=== PATIENT | female | born 1965 | race Hispanic/Latino ===

== ENCOUNTER 2017-10-09 15:16 | Inpatient (IN) | payer OTHER ==
[2017-10-09] VITALS (20 sets, daily range): BP systolic 136–172; BP diastolic 70–96
[~2017-10-09] VITALS: Ht 170.2 cm; Wt 90.5 kg
[2017-10-09] MEDS ORDERED: SODIUM CHLORIDE 0.9% 1000ML 1,000 ML IV STA (15:28)
[2017-10-09] MEDS ORDERED: ASPIRIN 81 MG CHEW TAB PO ONE (15:30)
[2017-10-09] MEDS ORDERED: ONDANSETRON HCL 4 MG ORAL DISINTEGRATING TAB PO ONE (15:30)
[2017-10-09 15:58] LABS: BASOPHILS # (AUTO) 0.1 (0.0-0.1); BASOPHILS % 0.6 % (0.0-1.0); EOSINOPHILS # (AUTO) 0.4 (0.0-0.4); EOSINOPHILS % 3.6 % (0.0-6.0); HEMATOCRIT 33.1 % (34.2-44.1); LYMPHOCYTES # (AUTO) 3.3 (1.0-3.2); LYMPHOCYTES % 27.9 % (18.0-39.1); MEAN CORPUSCULAR HEMOGLOBIN 31.3 pg (28-32); MEAN CORPUSCULAR HGB CONC 36.3 g/dL (31-35); MEAN CORPUSCULAR VOLUME 86.2 fL (81-99); MONOCYTES # (AUTO) 0.9 (0.2-0.8); MONOCYTES % 7.9 % (4.4-11.3); NEUTROPHILS % 59.4 % (38.7-80.0); PLATELET COUNT 299 x10e3/uL (140-360); RED BLOOD COUNT 3.84 x10e6/uL (3.6-5.1); RED CELL DISTRIBUTION WIDTH 12.8 % (11.7-14.4)
[2017-10-09 16:02] LABS: INR 1.04; PROTHROMBIN TIME 12.8 seconds (11.9-14.5)
[2017-10-09 16:03] LABS: PARTIAL THROMBOPLASTIN TIME 22.5 seconds (23.8-35.5)
[2017-10-09 16:06] LABS: BILIRUBIN,URINE 1+ (NEGATIVE); CLARITY,URINE SL CLOUDY (CLEAR); COLOR,URINE YELLOW (YELLOW); KETONES,URINE 1+ (NEGATIVE); LEUKOCYTE ESTERASE ,URINE NEGATIVE (NEGATIVE); NITRITE,URINE NEGATIVE (NEGATIVE); PROTEIN,URINE DIPSTICK 1+ (NEGATIVE); URINE UROBILINOGEN 0.2 mg/dL (0.2 - 1)
[2017-10-09 16:14] LABS: ALANINE AMINOTRANSFERASE 23 IU/L (0-55); ALBUMIN 3.9 g/dL (3.5-5.0); ALBUMIN/GLOBULIN RATIO 1.2 (0.8-2.0); ALKALINE PHOSPHATASE 88 IU/L (40-150); ANION GAP 16.3 mmol/L (8-16); BLOOD UREA NITROGEN 29 mg/dL (7-26); BUN/CREATININE RATIO 18 (6-25); CALCIUM 9.7 mg/dL (8.4-10.2); CARBON DIOXIDE 22 mmol/L (22-29); CHLORIDE 102 mmol/L (98-107); CREATININE, SERUM 1.58 mg/dL (0.57-1.11); EST GLOMERULAR FILTRATION RATE 34 ML/MIN (60-); GLUCOSE 327 mg/dL (74-118); LIPASE 26 U/L (8-78); POTASSIUM 4.3 mmol/L (3.5-5.1); SODIUM 136 mmol/L (136-145)
[2017-10-09 16:16] LABS: RBC,URINE 0-5 /HPF (0-5)
[2017-10-09 16:17] LABS: AMORPHOUS SEDIMENT,URINE FEW (FEW); BACTERIA,URINE FEW /HPF; EPITHELIAL CELLS,URINE FEW /LPF; HYALINE CASTS 0-1 (0-1)
[2017-10-09 16:33] LABS: THYROID STIMULATING HORMONE 1.164 uIU/mL (0.350-4.940)
[2017-10-09 16:37] LABS: CREATINE KINASE 244 IU/L (29-168)
--- NOTE | 2017-10-09 16:53 | Diagnostic Imaging Report ---
History:Dizziness Comparison studies:None Technique: Axial images were obtained from the skull base to the vertex. Coronal and sagittal images reconstructed from the axial data. Intravenous contrast: None Findings: Scalp/skull: No abnormalities. Extra-axial spaces: No masses. No fluid collections. Brain sulci: Mildly prominent. Ventricles: Mild compensatory dilatation. No hydrocephalus. Parenchyma: Few hypodensities in the supratentorial white matter are small vessel ischemic changes. No masses, hemorrhage, acute or chronic cortical vascular insults. Sellar/suprasellar region: No abnormalities. Craniocervical junction: Patent foramen magnum. No Chiari one malformation. Incidental findings: Atherosclerotic calcifications in the carotid siphons and vertebral arteries. Partial nonspecific opacification of the left mastoid air cells. Impression: No acute abnormalities. Chronic findings: 1. Mild generalized volume loss more prominent at the frontoparietal convexities. 2. Mild supratentorial white matter small vessel ischemic changes. 3. Partial nonspecific opacification of the left mastoid air cells Signed by: DR Maurizio Wagner M.D. on 10/09/2017 4:49 PM
[2017-10-09] MEDS ORDERED: HEPARIN SOD (PORCINE) 5,000 UNIT/ML VIAL IV ONE (17:00)
[2017-10-09] MEDS ORDERED: LIDOCAINE HCL 2% LOCAL 20 ML VIAL ONE (17:23)
[2017-10-09] MEDS ORDERED: IOPAMIDOL 370 MG/ML 200 ML INFUS..BTL INJ ONE ×2 (17:24→18:30)
[2017-10-09] MEDS ORDERED: HEPARIN SOD/SOD CHLORIDE 2,000 ML ONE (17:24)
--- OUTSIDE RECORDS SUMMARY | 2017-10-09 17:25 | XMS REPORT ---
[facility] Address Unknown Phone Unavailable Care Team Providers Care Intelligence Director Name Role Phone SAYDA KRUSE Unavailable Unavailable Problems This patient has no known problems. Allergies, Adverse Reactions, Alerts This patient has no known allergies or adverse reactions. Medications This patient has no known medications. Results Test Description Test Time Test Comments Text Results Atomic Results Result Comments CT BRAIN WO [place] [address] Patient Name: REMBERTO ALBARRAN MR #: [id number] : 1965 Age/Sex: 52/F Req #: [id number] Adm Physician: Ordered by: BENIGNO SOUSA CUFF SLITTER Report #: [id number] Location: ER Room/Bed: Procedure: [id number] CT/CT BRAIN WO Exam Date: 10/09/17 Exam Time: 1620 REPORT STATUS: Signed History:Dizziness Comparison studies:None Technique: Axial images were obtained from the skull base to the vertex. Coronal and sagittal images reconstructed from the axial data. Intravenous contrast: None Findings: Scalp/skull: No abnormalities. Extra- axial spaces: No masses. No fluid collections. Brain sulci: Mildly prominent. Ventricles: Mild compensatory dilatation. No hydrocephalus. Parenchyma: Few hypodensities in the supratentorial white matter are small vessel ischemic changes. No masses, hemorrhage, acute or chronic cortical vascular insults. Sellar/suprasellar region: No abnormalities. Craniocervical junction: Patent foramen magnum. No Chiari one malformation. Incidental findings: Atherosclerotic calcifications in the carotid siphons and vertebral arteries. Partial nonspecific opacification of the left mastoid air cells. Impression: No acute abnormalities. Chronic findings: 1. Mild generalized volume loss more prominent at the frontoparietal convexities. 2. Mild supratentorial white matter small vessel ischemic changes. 3. Partial nonspecific opacification of the left mastoid air cells Signed by: DR Maurizio Wagner M.D. on 10/09/2017 4: 49 PM Dictated By: MAURIZIO DUNCAN MD 48 Transcribed By: BETO on 10/09/171648 COPY TO: BENIGNO SOUSA NP
[2017-10-09] MEDS ORDERED: HEPARIN SOD (PORCINE) 1000 UNIT/ML 30ML ONE (17:26)
[2017-10-09] MEDS ORDERED: BIVALIRUDIN 250 MG/VIAL IV ONE (17:27)
[2017-10-09] MEDS ORDERED: MIDAZOLAM HCL 2 MG/2 ML VIAL ONE ×2 (17:27→18:26)
[2017-10-09] MEDS ORDERED: SODIUM CHLORIDE 0.9% 50ML 50 ML ONE (17:27)
[2017-10-09] MEDS ORDERED: FENTANYL CITRATE/PF 100MCG/2 ML INJ ONE (17:27)
[2017-10-09] MEDS ORDERED: SODIUM CHLORIDE 0.9% 1000ML 1,000 ML ONE (17:28)
[2017-10-09] MEDS ORDERED: NITROGLYCERIN/D5W 200 MCG/ML 250 ML ONE (17:28)
--- NOTE | 2017-10-09 17:33 | Diagnostic Imaging Report ---
EXAMINATION: Chest, CHEST SINGLE (PORTABLE) INDICATION: Chest pain COMPARISON: None FINDINGS: LINES: None. Heart: Normal cardiac silhouette. Vascular: The pulmonary vasculature is within normal limits. Mediastinum: No mediastinal, hilar, or axillary mass or lymphadenopathy. Lungs: No parenchymal mass. No focal consolidation. Bibasilar atelectasis. Pleura: No pleural effusion. No pneumothorax. Bones: No acute osseous abnormality. Degenerative changes of the thoracic spine. Soft tissues: Normal. Impression: No acute radiographic abnormality. Signed by: Dr. Marty Cates M.D. on 10/09/2017 5:30 PM
--- NOTE | 2017-10-09 17:38 | Consultation ---
DATE OF CONSULTATION: NO DICTATION. 34 seconds. Job#: [id number]
[2017-10-09] MEDS ORDERED: CLOPIDOGREL BISULFATE 75 MG TAB ONE (18:42)
[2017-10-09] MEDS ORDERED: DEXTROSE 5%/0.45% SOD CHL 1,000 ML IV SCH (19:05)
[2017-10-09] MEDS ORDERED: DEXTROSE 50% SYRINGE 50 ML IV PRN (19:15)
--- NOTE | 2017-10-09 19:23 | Operative Report ---
DATE OF PROCEDURE: October 09, 2017 PREOPERATIVE DIAGNOSIS: POSTOPERATIVE DIAGNOSIS: PROCEDURES 1. Intracoronary stent placement in the proximal left anterior descending artery. 2. Left heart catheterization. INDICATIONS: Acute anterior wall myocardial infarction. COMPLICATIONS: None. ANESTHESIA: Versed, fentanyl, and lidocaine. TECHNIQUE: The right groin was draped and prepped in the usual fashion. The area was anesthetized with lidocaine. Standard Seldinger technique was used to place a 6-Mongolian sheath into the right femoral artery without difficulty. A JL4 catheter was used to selectively engage the left coronary artery. A 3DRC catheter was used to selectively engage the right coronary artery. A pigtail catheter was used to perform a left ventriculogram. Attention was then turned to the 100% stenosis in the proximal left anterior descending artery. The patient was bolused with Angiomax and started on Angiomax drip. The patient was given 600 mg of Plavix. An XB 3.5-guiding catheter was used to selectively engage the left coronary artery. A Whisper wire was used to cross the area of 100% stenosis. The area was predilated with a 2.5- x 12-mm balloon. A 28-mm x 3.0-mm Synergy stent was then deployed at 16 atmospheres for 30 seconds, no residual stenosis. There were no complications. An AngioSeal device was used for closure. Results as follows: 1. There is a normal left main trunk. 2. There is a large left anterior descending artery, which gave rise to a medium-size diagonal branch. The left anterior descending artery was 100% occluded in its proximal portion. 3. There was a medium-sized AV circumflex artery, which gave rise to a Large bifurcating obtuse marginal branch. There was minimal disease in the circumflex system. 4. There was a large dominant right coronary artery with minimal disease. 5. There was some mild hypokinesis at the apex with overall mild left ventricular dysfunction and an ejection fraction of 45% to 50%. Conclusion successful stent placement in the left anterior descending artery without complication. Job#: [id number] [id number] MTDD
[2017-10-09] MEDS ORDERED: ACETAMINOPHEN 325 MG TAB PO PRN (20:15)
[2017-10-09] MEDS ORDERED: MORPHINE SULFATE 4 MG/ML SYR IV PRN (20:15)
[2017-10-09] MEDS ORDERED: DOCUSATE SODIUM 100 MG CAP PO PRN (20:15)
[2017-10-09] MEDS ORDERED: ONDANSETRON HCL INJ 2 MG/ML VIAL IV PRN (20:15)
[2017-10-09] MEDS ORDERED: LISINOPRIL5 MG (20:53)
[2017-10-09] MEDS ORDERED: METFORMIN HCL500 MG PO (20:53)
[2017-10-09] MEDS ORDERED: GLIPIZIDE5 MG PO (20:53)
[2017-10-09] MEDS ORDERED: SIMVASTATIN40 MG PO (20:54)
[2017-10-09] MEDS ORDERED: ASPIR 8181 MG (20:56)
[2017-10-09] MEDS: SODIUM CHLORIDE 0.9% 1000ML 1,000 ML IV SCH (21:38)
[2017-10-09] MEDS: INSULIN REGULAR, HUMAN 100 UNIT/1 ML 3ML VIAL SQ SCH (21:54)
[2017-10-09] MEDS: ATORVASTATIN 20 MG TAB PO SCH (21:54)
[2017-10-09] MEDS: CEFTRIAXONE SOD 1 GM VIAL IV SCH (22:00)
[2017-10-10] VITALS (38 sets, daily range): BP systolic 112–176; BP diastolic 56–99
[2017-10-10 06:09] LABS: BASOPHILS % 0.4 % (0.0-1.0); EOSINOPHILS # (AUTO) 0.4 (0.0-0.4); EOSINOPHILS % 3.8 % (0.0-6.0); HEMATOCRIT 30.5 % (34.2-44.1); HEMOGLOBIN 10.9 g/dL (12.0-16.0); LYMPHOCYTES # (AUTO) 3.3 (1.0-3.2); LYMPHOCYTES % 34.4 % (18.0-39.1); MEAN CORPUSCULAR HEMOGLOBIN 31.1 pg (28-32); MEAN CORPUSCULAR HGB CONC 35.7 g/dL (31-35); MEAN CORPUSCULAR VOLUME 87.1 fL (81-99); MONOCYTES # (AUTO) 0.9 (0.2-0.8); MONOCYTES % 9.1 % (4.4-11.3); NEUTROPHILS % 51.8 % (38.7-80.0); PLATELET COUNT 228 x10e3/uL (140-360); RED CELL DISTRIBUTION WIDTH 12.9 % (11.7-14.4)
[2017-10-10 06:30] LABS: ALANINE AMINOTRANSFERASE 18 IU/L (0-55); ALBUMIN 3.2 g/dL (3.5-5.0); ALBUMIN/GLOBULIN RATIO 1.5 (0.8-2.0); ALKALINE PHOSPHATASE 75 IU/L (40-150); ANION GAP 13.1 mmol/L (8-16); BLOOD UREA NITROGEN 21 mg/dL (7-26); BUN/CREATININE RATIO 26 (6-25); CALCIUM 8.8 mg/dL (8.4-10.2); CARBON DIOXIDE 23 mmol/L (22-29); CHLORIDE 106 mmol/L (98-107); CREATININE, SERUM 0.81 mg/dL (0.57-1.11); EST GLOMERULAR FILTRATION RATE > 60 ML/MIN (60-); GLUCOSE 237 mg/dL (74-118); POTASSIUM 4.1 mmol/L (3.5-5.1); SODIUM 138 mmol/L (136-145)
[2017-10-10 06:50] LABS: MAGNESIUM 1.4 MG/DL (1.3-2.1); PHOSPHORUS 3.6 MG/DL (2.3-4.7)
[2017-10-10] MEDS: SODIUM CHLORIDE 0.9% 1000ML 1,000 ML IV SCH ×2 (07:59→21:08)
[2017-10-10] MEDS: INSULIN REGULAR, HUMAN 100 UNIT/1 ML 3ML VIAL SQ SCH ×4 (08:00→21:08)
[2017-10-10] MEDS ORDERED: GLIMEPIRIDE 2 MG TAB PO SCH (08:00)
[2017-10-10] MEDS ORDERED: FAMOTIDINE 20 MG/2 ML VIAL IV SCH (09:00)
[2017-10-10] MEDS ORDERED: ASPIRIN 81 MG CHEW TAB PO SCH (09:00)
[2017-10-10 09:37] LABS: CHOL/HDL RATIO 5.8 (3.0-3.6); CHOLESTEROL 122 MD/DL (0-199); HDL CHOLESTEROL 21 MG/DL (40-60); LDL CHOLESTEROL 38 MG/DL (60-130); TRIGLYCERIDES 316 MG/DL (0-149)
[2017-10-10] MEDS: METOPROLOL TARTRATE 25 MG TAB PO SCH ×2 (09:53→17:09)
[2017-10-10] MEDS: CLOPIDOGREL BISULFATE 75 MG TAB PO SCH (09:54)
--- NOTE | 2017-10-10 13:10 | Diagnostic Imaging Report ---
PROCEDURE:US RETROPERITONEAL ( KIDNEY ). COMPARISON:None. INDICATIONS:CHEY/UTI TECHNIQUE: Andrews-scale and color sonographic images of the bilateral kidneys and bladder where obtained in transverse and longitudinal planes. FINDINGS: RIGHT KIDNEY: 11.4 cm in length, cortical thickness 1.8 cm. Cysts: None Solid masses: None Stones: None Hydronephrosis: None Echogenicity: Normal renal cortical echogenicity. LEFT KIDNEY: 12.3 cm in length, cortical thickness 1.7 cm. Cysts: None Solid masses: None Stones: None Hydronephrosis: None Echogenicity: Normal renal cortical echogenicity. Bladder: Unremarkable. Right and left ureteral jets are identified. CONCLUSION: Unremarkable renal ultrasound. Dictated by: Madhu Gore M.D. on 10/10/2017 at 13:11 Electronically approved by: Madhu Gore M.D. on 10/10/2017 at 13:11
--- NOTE | 2017-10-10 13:20 | History and Physical ---
PRESENTING COMPLAINT: Lightheadedness with neck pain and dizziness and mild chest discomfort, got worse today. HISTORY OF PRESENT ILLNESS: A 52-year-old female was admitted from the ER. The patient came to the ER herself. The patient tells that she was feeling occasional lightheadedness for the last 2-3 days. It got worse today when she was at work. The patient also felt like a numbness on the right side of the face and neck pain along with chest discomfort. The patient also vomited twice, as per her statement. She denies any shortness of breath or palpitations or perspiration. The patient was found having elevated troponin. EKG showed LVH with less than [address] segment inferolateral leads. The patient was taken to the cath lab manager by cardiology, Dr. Thomas. The patient had a stress test last year, which was negative for any ischemia. The patient was seen by me in the office 2 days ago when she was found having elevated blood pressure. The patient reportedly was missing her blood pressure medication and Amaryl diabetic medication. The patient was given prescription and advised to start medication as soon as possible. The patient said that she started taking medication yesterday morning. She does not have any blood pressure monitor at home since taking medication, since admission was not working. The patient denied any loss of consciousness or change in mental status. REVIEW OF SYSTEMS CONSTITUTIONAL: No fever, chills or rigor. HEENT: No visual disturbance. No earache. No nasal congestion. No sore throat. CARDIOVASCULAR: Chest discomfort as per HPI. No palpitations. No shortness of breath. PULMONARY: No cough, no hemoptysis. GI: The patient had 2 episodes of vomiting containing food matter, no blood in vomitus. No diarrhea, no bloody stool or black stools. : No dysuria. No hematuria. MUSCULOSKELETAL, SKIN, LYMPHATIC: No joint pain. No joint swelling. No skin rash. No swollen glands. NEUROLOGIC: No loss of consciousness. No seizure. The patient felt lightheadedness as per HPI. HISTORY OF PAST MEDICAL ILLNESS: Type 2 diabetes mellitus for more than 2 years, essential hypertension, hyperlipidemia, no history of CAD in the past. No history of stroke in the past. HISTORY OF PAST SURGERY: Hysterectomy for dysfunctional uterine bleeding more than 5 years ago. No other history of surgery. ALLERGIES: NO KNOWN MEDICATION ALLERGY. HOME MEDICATIONS: The patient was on metformin 1000 mg b.i.d., Amaryl 1 mg p.o. q.a.m., Hyzaar 125 mg p.o. daily, amlodipine 5 mg daily, Zocor 20 mg daily. CORROSION TECHNICIAN HISTORY: The patient is status post hysterectomy for more than 5 years for menorrhagia. She has 2 adult offspring. HABITS: The patient denies alcohol or substance abuse history. The patient quit smoking more than 2 years ago. FAMILY HISTORY: Both parents of CAD. Her siblings also had diabetes and CAD as well, per the patient's statement. PHYSICAL EXAMINATION VIALS: BP at presentation 165/79 and now 150/78, pulse 81 beats per minute, temperature 98.1, respirations 16. SpO2 of 100% on room air. GENERAL: Alert, lying in bed without any distress, status post cardiac cath done this afternoon. HEENT: No pallor. Pupils are equally reacting. EOMI. NECK: No JVD, no carotid bruit, no lymphadenopathy, no thyromegaly. HEART: S1 and S2 irregular. No murmur. LUNGS: Clear to auscultation. ABDOMEN: Soft and nontender. No palpable mass. EXTREMITIES: No edema, cyanosis, or clubbing. NEUROLOGIC: Motor grossly equal on both sides. LABORATORY DATA: CBC: WBC 11.72, hemoglobin 12, hematocrit 36, CO2 of 99, neutrophils 59, lymphocytes 27, MCV 86, RDW 12.8, PT 12.9, ____ 1.04, PTT 22.5. Chemistry panel: Sodium 133, potassium 4.3, chloride 102, CO2 of 22, anion gap 12. BUN 29, creatinine 1.58. Glucose 327. Calcium 9.5. Total bilirubin 0.7, AST 20, ALT 23, alkaline phosphatase 88, CK 244, CK-MB 18.5, troponin I 2.08, BNP 297, total protein 7.2, albumin 3.9, globulin 3.3, lipase 26, TSH 1.16. qualitative negative. Urinalysis: Protein 1+, glucose 3+, ketones 1+, nitrite negative, , leukocytic esterase negative, WBCs 6-10, RBCs 0-5. Urine culture in progress. RADIOLOGICAL DATA: Chest x-ray single view, no cute radiographic abnormality. CT of head and brain without contrast mild generalized volume loss, mild supratentorial white matter, small vessel ischemic changes, partial nonspecific opacification of the left mastoid. Echocardiogram report pending. Cardiac catheterization report 100% stenosis of the proximal left anterior descending artery, normal left main trunk, large anterior descending artery gave rise to medium sized diagonal branch, medium sized AV circumflex artery, minimal disease in the circumflex system, large dominant right coronary artery with minimal disease, some mild hypokinesia of the apex, overall left ventricular dysfunctional ejection fraction of 45% to 50%. EKG: Normal sinus rhythm at a rate of 78 beats per minute. LV with voltage criteria. There is 0.5 mm elevation of the [address] segment in the inferior and anterior leads. ASSESSMENT AND PLAN 1. Acute vsd-KS-lafbttcku myocardial infarction. The patient is status post catheterization. The patient has left anterior descending artery 100% stenosis, has angioplasty and stent placement. Would follow with putty maker. The patient had last stress test and echocardiogram about one year ago that was within normal limits at that time. Likely because of the patient's noncompliance with antihypertensive and diabetic medication, she had this event. 2. Systolic failure with ejection fraction 45% to 50% on cardiac catheterization. Ejection fraction was normal last year on echocardiogram. Would monitor for now. Her BNP is slightly elevated. 3. Hypertension. Continue the patient on metoprolol, started from here. Continue the patient on amlodipine. Keep the patient on hydralazine p.r.n. 4. Diabetes mellitus type 2, uncontrolled. The patient's diabetes was controlled well when her hemoglobin A1c was 6.8. Last test done this month was 8.9 because of noncompliance with the Amaryl. Continue the patient on sliding scale insulin. 5. Hyperlipidemia. Continue the patient on statin. 6. Dizziness. The patient's CT of head is negative for any acute change. Would ask for carotid Doppler. 7. Acute renal insufficiency. The patient's creatinine was normal as outpatient. Earlier this month she had a renal ultrasound. Continue the patient on low-grade IV fluid. 8. Leukocytosis with probable mild urinary tract infection. Would follow the urine culture. Would give the patient one dose of ceftriaxone 1 gram IV for now. DISCHARGE PLAN: Will discharge the patient when cleared by the putty maker. Job#: [id number]
[2017-10-10] MEDS: FAMOTIDINE 20 MG TAB PO SCH (17:09)
[2017-10-10] MEDS: GLIMEPIRIDE 2 MG TAB PO SCH (17:09)
[2017-10-10] MEDS: ATORVASTATIN 20 MG TAB PO SCH (21:08)
[2017-10-10] MEDS: CEFTRIAXONE SOD 1 GM VIAL IV SCH (21:08)
[2017-10-11 05:48] VITALS: BP 136/64
[2017-10-11 07:12] LABS: BASOPHILS % 0.5 % (0.0-1.0); EOSINOPHILS # (AUTO) 0.4 (0.0-0.4); EOSINOPHILS % 4.5 % (0.0-6.0); HEMATOCRIT 28.4 % (34.2-44.1); LYMPHOCYTES # (AUTO) 3.1 (1.0-3.2); LYMPHOCYTES % 37.5 % (18.0-39.1); MEAN CORPUSCULAR HEMOGLOBIN 30.9 pg (28-32); MEAN CORPUSCULAR HGB CONC 35.2 g/dL (31-35); MEAN CORPUSCULAR VOLUME 87.7 fL (81-99); MONOCYTES # (AUTO) 0.8 (0.2-0.8); MONOCYTES % 9.2 % (4.4-11.3); NEUTROPHILS % 47.8 % (38.7-80.0); PLATELET COUNT 221 x10e3/uL (140-360); RED BLOOD COUNT 3.24 x10e6/uL (3.6-5.1); RED CELL DISTRIBUTION WIDTH 12.8 % (11.7-14.4)
[2017-10-11 07:54] VITALS: BP 177/84
[2017-10-11 07:58] LABS: ANION GAP 12.1 mmol/L (8-16); BLOOD UREA NITROGEN 15 mg/dL (7-26); BUN/CREATININE RATIO 20 (6-25); CALCIUM 8.9 mg/dL (8.4-10.2); CARBON DIOXIDE 24 mmol/L (22-29); CHLORIDE 108 mmol/L (98-107); CREATININE, SERUM 0.74 mg/dL (0.57-1.11); EST GLOMERULAR FILTRATION RATE > 60 ML/MIN (60-); GLUCOSE 156 mg/dL (74-118); POTASSIUM 4.1 mmol/L (3.5-5.1); SODIUM 140 mmol/L (136-145)
[2017-10-11] MEDS: CLOPIDOGREL BISULFATE 75 MG TAB PO SCH (08:42)
[2017-10-11] MEDS: METOPROLOL TARTRATE 25 MG TAB PO SCH ×2 (08:51→17:12)
[2017-10-11] MEDS: FAMOTIDINE 20 MG TAB PO SCH ×2 (08:51→16:26)
[2017-10-11] MEDS: GLIMEPIRIDE 2 MG TAB PO SCH (08:51)
[2017-10-11] MEDS: METFORMIN HCL 500 MG TAB CR PO SCH ×2 (08:51→16:27)
[2017-10-11] MEDS ORDERED: LOSARTAN POTASSIUM 100 MG TAB PO SCH (09:00)
[2017-10-11] MEDS ORDERED: MAGNESIUM OXIDE 400 MG TAB PO SCH (09:00)
[2017-10-11] MEDS ORDERED: ASPIRIN 81 MG CHEW TAB PO SCH (09:00)
[2017-10-11] MEDS: INSULIN REGULAR, HUMAN 100 UNIT/1 ML 3ML VIAL SQ SCH ×3 (09:10→17:10)
[2017-10-11 10:02] VITALS: BP 177/84
[2017-10-11 11:31] VITALS: BP 155/72
[2017-10-11] MEDS ORDERED: ONDANSETRON HCL 4 MG ORAL DISINTEGRATING TAB PO PRN (13:00)
[2017-10-11 15:35] VITALS: BP 172/76
[2017-10-11] MEDS: SODIUM CHLORIDE 0.9% 1000ML 1,000 ML IV SCH (15:37)
[2017-10-11] MEDS ORDERED: LIPITOR20 MG PO (15:43)
[2017-10-11] MEDS ORDERED: METOPROLOL SUCC25 MG PO (15:44)
[2017-10-11] MEDS ORDERED: PLAVIX75 MG PO (15:45)
[2017-10-11] MEDS ORDERED: MORPHINE SULFATE 2 MG/ML SYR IV PRN (16:00)
[2017-10-11] MEDS ORDERED: GLIMEPIRIDE2 MG PO (16:24)
--- NOTE | 2017-10-11 16:47 | Discharge Summary ---
PATIENT LOCATION: Room 115. CONSULTATIONS: Dr. Madhu Thomas, technical healthcare consultant. PROCEDURES: Cardiac catheterization and left anterior descending stenting by Dr. Thomas on October 09, 2017. FINAL DIAGNOSIS: Acute jan-RR-masodgxnj myocardial infarction, status post left anterior descending stenting. OTHER DIAGNOSES 1. Systolic congestive heart failure, compensated. 2. Accelerated hypertension. 3. Hyperlipidemia. 4. Diabetes mellitus type 2. 5. Dizziness, resolved. 6. Acute renal insufficiency, resolved. 7. Leukocytosis, resolved. 8. Mild normocytic anemia. BRIEF HOSPITAL COURSE: A 52-year-old female was admitted from ER with complaints of dizziness and chest discomfort. Patient was found having elevated troponin, and EKG showed anterior PR. Dr. Madhu Thomas, technical healthcare consultant, was consulted. He took patient to the cardiac pathology laboratory director. Patient had a cardiac catheterization which showed 100% occlusion of the LAD. Angioplasty and stent placement were done by Dr. Thomas. Patient tolerated the procedure well. She was continued on heparin initially, was switched to Plavix after cardiac catheterization. Patient was also on aspirin. She tolerated the procedure well. Patient was transferred to the floor yesterday from ICU. Her blood pressure was running high; so, medication was optimized. Her blood glucose level was also running high. Dose of antidiuretic medication was optimized. Patient was otherwise uneventful. She was cleared by the technical healthcare consultant for discharge. Patient is discharged home with instruction today. She is hemodynamically stable now. VITALS TODAY: BP 155/72, pulse 71, temp 97.4, respiration 17, SpO2 99% at room air. PHYSICAL EXAMINATION GENERAL: Alert, not in acute distress. HEENT: No pallor. No icterus. NECK: No JVD, no carotid bruit. No lymphadenopathy, no thyromegaly. HEART: S1 and S2 regular. No murmur. LUNGS: Clear to auscultation. ABDOMEN: Soft, nontender. No palpable mass. EXTREMITIES: No edema, cyanosis, clubbing. NEUROLOGICAL: Motor grossly equal on both sides. LAB DATA: CBC: WBC 8.38, hemoglobin 10, hematocrit 28, platelet 221, MCV 87, RDW 12, neutrophil 47, lymphocyte 37. PT 12.8, INR 1.04, PTT 22.5. Chemistry panel: Sodium 140, potassium 4.1, chloride 108, CO2 24, anion gap 8, BUN 15, creatinine 0.7, glucose 156, calcium 8.9, phosphorus 3.6, magnesium 1.4. Total bilirubin 0.5, AST 19, ALT 18, alk phos 75. Troponin I, 2.084. BNP 290. Total protein is 5.4, albumin 3.2, globulin 2.2. Triglyceride 316, cholesterol 122, LDL 38, HDL 21. Lipase 26. TSH 1.18. HCV qualitative negative. Urinalysis at presentation: Protein 1+, glucose 3+, ketone 1+, nitrite negative, leukocyte esterase negative, WBC 6-10, RBC 0-5. MICROBIOLOGICAL DATA: Urine culture no growth since 24 hours. Blood culture no growth in 24 hours. RADIOLOGICAL DATA: Echocardiogram: Official report pending. Carotid Doppler: No hemodynamically significant stenosis right or left internal carotid artery. Renal ultrasound: Unremarkable renal ultrasound. CT head without contrast at presentation: Mild generalized volume loss, mild supratentorial white matter small-vessel changes, partial nonspecific opacification of the left mastoid air cell. X-ray chest single-view at presentation: No acute abnormality. Cardiac catheterization report: Normal left main trunk, large left anterior descending artery, medium-sized diagonal branch, left anterior descending artery 100% occluded in its proximal portion, medium-sized AV circumflex artery with minimal disease, large dominant right coronary artery with minimal disease, mild hypokinesia of the apex with overall left ventricular dysfunction and ejection fraction of 45% to 50%. MEDICATION ON DISCHARGE: Please refer to the med reconciliation sheet. DIET: An 1800-calorie 2 g-sodium low-cholesterol diet. ACTIVITY: As tolerated. Avoid exertion. Follow cardiology recommendation. INSTRUCTIONS AT DISCHARGE: Continue medication as per discharge recommendation. Monitor BP plus fingerstick glucose at home. Follow up with technical healthcare consultant as available. Follow up with me in 1 week at my office. AFRICA FORREST MD Job#: [id number]
[2017-10-11] MEDS ORDERED: GLIMEPIRIDE 2 MG TAB PO SCH (17:00)
== END 2017-10-11 17:17 | disposition home or self-care (01) | DRG 247 ==
LOC: ER 15:16 → CATH LAB 17:22 → ICU 20:21 → MED/SURG 10-10 22:35
PROVIDERS: ADMIT Internal Medicine; ATTEND Internal Medicine
PROC: 027034Z Dilation of Coronary Artery, One Artery with Drug-eluting Intraluminal Device, Percutaneous Approach (ICD-10-PCS; principal; 2017-10-09)
PROC: 4A023N7 Measurement of Cardiac Sampling and Pressure, Left Heart, Percutaneous Approach (ICD-10-PCS; 2017-10-09)
PROC: B2111ZZ Fluoroscopy of Multiple Coronary Arteries using Low Osmolar Contrast (ICD-10-PCS; 2017-10-09)
DX: I21.4 Non-ST elevation (NSTEMI) myocardial infarction (principal); I50.22 Chronic systolic (congestive) heart failure; I25.10 Atherosclerotic heart disease of native coronary artery without angina pectoris; I11.0 Hypertensive heart disease with heart failure; E11.65 Type 2 diabetes mellitus with hyperglycemia; N28.9 Disorder of kidney and ureter, unspecified; D64.9 Anemia, unspecified; Z91.14 Patient's other noncompliance with medication regimen; Z79.84 Long term (current) use of oral hypoglycemic drugs; Z79.02 Long term (current) use of antithrombotics/antiplatelets; Z79.82 Long term (current) use of aspirin
CPT/HCPCS: 36140; 36415; 70450; 71045; 76770; 77002; 80048; 80053; 80061; 81001; 82550; 82553; 82948; 83690; 83735; 83880; 84100; 84443; 84484; 84702; 85025; 85610; 85730; 87040; 87086; 92920; 93005; 93308; 93452; 93458; 93880; 96372; 97139; 99285; C1769; C9600; J0583; J0696; J1644; J2001; J2250; J7030; Q9967

== ENCOUNTER 2020-10-14 15:19 | Emergency (ER) | payer OTHER ==
[~2020-10-14] VITALS: Ht 170.2 cm; Wt 90.3 kg
[~2020-10-14 15:19] MED LIST: ASPIR 8181 MG; GLIMEPIRIDE2 MG PO; GLIPIZIDE5 MG PO; LIPITOR20 MG PO; LISINOPRIL5 MG; METFORMIN HCL500 MG PO; METOPROLOL SUCC25 MG PO; PLAVIX75 MG PO; SIMVASTATIN40 MG PO
[2020-10-14 16:24] LABS: BASOPHILS # (AUTO) 0.1 (0.0-0.1); BASOPHILS % 0.6 % (0.0-1.0); EOSINOPHILS # (AUTO) 0.4 (0.0-0.4); EOSINOPHILS % 4.3 % (0.0-6.0); HEMATOCRIT 33.8 % (34.2-44.1); HEMOGLOBIN 11.5 g/dL (12.0-16.0); LYMPHOCYTES # (AUTO) 3.1 (1.0-3.2); LYMPHOCYTES % 30.8 % (18.0-39.1); MEAN CORPUSCULAR HEMOGLOBIN 30.7 pg (28-32); MEAN CORPUSCULAR VOLUME 90.4 fL (81-99); MONOCYTES # (AUTO) 0.7 (0.2-0.8); MONOCYTES % 7.2 % (4.4-11.3); NEUTROPHILS # (AUTO) 5.7 (2.1-6.9); NEUTROPHILS % 56.6 % (38.7-80.0); PLATELET COUNT 352 x10e3/uL (140-360); RED BLOOD COUNT 3.74 x10e6/uL (3.6-5.1); RED CELL DISTRIBUTION WIDTH 13.1 % (11.7-14.4)
[2020-10-14 16:38] LABS: ALBUMIN 4.1 g/dL (3.5-5.0); ALBUMIN/GLOBULIN RATIO 1.5 (0.8-2.0); ANION GAP 17.6 mmol/L (8-16); CALCIUM 9.2 mg/dL (8.4-10.2); CREATININE, SERUM 1.21 mg/dL (0.57-1.11); POTASSIUM 4.6 mmol/L (3.5-5.1)
[2020-10-14 16:40] LABS: CLARITY,URINE CLEAR (CLEAR); COLOR,URINE YELLOW (YELLOW); KETONES,URINE NEGATIVE (NEGATIVE); LEUKOCYTE ESTERASE ,URINE TRACE (NEGATIVE); NITRITE,URINE NEGATIVE (NEGATIVE); PROTEIN,URINE DIPSTICK 2+ (NEGATIVE); URINE UROBILINOGEN 0.2 mg/dL (0.2 - 1)
[2020-10-14 16:45] LABS: BACTERIA,URINE RARE /HPF; MUCUS,URINE FEW (RARE); RBC,URINE 0-5 /HPF (0-5)
[2020-10-14] MEDS ORDERED: CEPHALEXIN500 MG PO (17:56)
[2020-10-14] MEDS ORDERED: SODIUM CHLORIDE 0.9% 1000ML 1,000 ML IV STA (18:31)
[2020-10-14] MEDS ORDERED: MECLIZINE HCL 12.5 MG TAB PO ONE (18:45)
[2020-10-14] MEDS ORDERED: DIAZEPAM 5 MG TAB PO PRN (18:45)
[2020-10-15 00:50] VITALS: BP 142/75
== END 2020-10-14 21:00 | disposition home or self-care (01) ==
LOC: ER 16:16
DX: R42 Dizziness and giddiness (principal); H53.8 Other visual disturbances; N39.0 Urinary tract infection, site not specified; I10 Essential (primary) hypertension; E11.9 Type 2 diabetes mellitus without complications; E78.5 Hyperlipidemia, unspecified; M54.9 Dorsalgia, unspecified; G89.29 Other chronic pain
CPT/HCPCS: 36415; 70450; 71045; 80053; 81001; 83880; 84484; 85025; 93005; 99284; J7030; J8597